=== PATIENT | male | born 1955 | race Caucasian/White ===

== ENCOUNTER 2017-12-22 16:47 | Inpatient (IN) | payer OTHER ==
[~2017-12-22] VITALS: Ht 193 cm; Wt 106.4 kg
[2017-12-22 17:05] LABS: BASOPHIL (%) 0.3 % (0-1); EOSINOPHIL COUNT 0.1 K/uL (0-0.3); HEMATOCRIT 43.3 % (38.0-50.0); HEMOGLOBIN 14.6 G/DL (12.5-16.6); IMMATURE GRANULOCYTE (%) 0.7 % (0.0-0.7); LYMPHOCYTE COUNT 1.7 K/uL (1.0-2.8); MCH 30.1 PG (29.0-34.0); MCHC 33.7 G/DL (30.0-36.0); MCV 89.3 FL (86-99); MONOCYTE (%) 6.7 % (3-12); MONOCYTE COUNT 0.5 K/uL (0-0.8); NEUTROPHIL (%) 66.3 % (45-76); NEUTROPHIL COUNT 4.6 K/uL (1.8-6.4); PLATELET COUNT 198 K/uL (156-360); RBC DIS.WIDTH-CV 12.7 % (11.8-14.6); RBC DIS.WIDTH-SD 41.7 % (39-53); RED BLOOD COUNT 4.85 M/uL (4.00-5.50); WHITE BLOOD COUNT 6.9 K/uL (4.1-10.2)
[2017-12-22 17:13] LABS: AMYLASE 34 IU/L (1-118); CHLORIDE 107 mEq/L (99-109); POTASSIUM 3.8 mEq/L (3.7-5.4); SODIUM 145 mEq/L (136-147)
[2017-12-22 17:15] LABS: GLUCOSE 130 mg/dL (70-99)
[2017-12-22 17:18] LABS: SERUM ETHYL ALCOHOL < 10 mg/dL
[2017-12-22 17:19] LABS: GFR ESTIMATE (CALCULATED) > 59 mL/min/ (58.99-99999)
[2017-12-22 17:20] LABS: UREA NITROGEN (BUN) 18 mg/dL (9-23)
[2017-12-22 18:03] LABS: LIPASE 20 U/L (1.0-51.0)
[2017-12-22 18:22] LABS: APPEARANCE CLEAR ((CLEAR)); BILIRUBIN NEGATIVE; BLOOD LARGE; COLOR YELLOW ((YELLOW)); GLUCOSE (STRIP) NEGATIVE; KETONES NEGATIVE; LEUKOCYTES NEGATIVE; NITRITE NEGATIVE; PROTEIN (STRIP) 30; SPECIFIC GRAVITY 1.041 (1.000-1.030); UROBILINOGEN 0.2 MG/DL (0.2-1.0)
[2017-12-22 18:31] LABS: COCAINE NEGATIVE (150 ng/mL); PHENCYCLIDINE NEGATIVE (25 ng/mL); THC CANNABINOIDS NEGATIVE (50 ng/mL)
[2017-12-22 18:32] LABS: AMPHETAMINE NEGATIVE (500 ng/mL); BARBITURATES NEGATIVE (200 ng/mL); BENZODIAZEPINES NEGATIVE (150 ng/mL); BUPRENORPHINE NEGATIVE (10 ng/mL); METHADONE NEGATIVE (200 ng/mL); METHAMPHETAMINE NEGATIVE (500 ng/mL); OPIATES (MORPHINE) NEGATIVE (100 ng/mL); OXYCODONE NEGATIVE (100 ng/mL); PROPOXYPHENE NEGATIVE (300 ng/mL); TRICYCLIC ANTIDEPRESSANTS NEGATIVE (300 ng/mL)
[2017-12-22 18:33] LABS: TROP-I INTERPRETATION NEGATIVE; TROPONIN-I < 0.01 ng/mL (0.0-0.30)
[2017-12-22 18:37] LABS: EPITHELIAL CELLS NONE SEEN /HPF; MUCUS 1+ /LPF; RED BLOOD CELLS 15-20 /HPF (0-5); WHITE BLOOD CELLS NONE SEEN /HPF (0-5)
[2017-12-22 18:38] LABS: BACTERIA RARE /HPF; UCUL ADDED? NO
[2017-12-22] MEDS ORDERED: ALEVE PM CAPLE1 EACH PO (19:56)
[2017-12-22 21:37] VITALS: BP 165/97
[2017-12-22 23:43] VITALS: BP 125/88
[2017-12-23 03:43] VITALS: BP 134/85
[2017-12-23 06:54] LABS: HEMATOCRIT 38.8 % (38.0-50.0); MCHC 33.5 G/DL (30.0-36.0); MCV 89.6 FL (86-99); PLATELET COUNT 172 K/uL (156-360); RBC DIS.WIDTH-CV 12.8 % (11.8-14.6); RBC DIS.WIDTH-SD 42.4 % (39-53); RED BLOOD COUNT 4.33 M/uL (4.00-5.50); WHITE BLOOD COUNT 5.4 K/uL (4.1-10.2)
[2017-12-23 08:09] LABS: ALBUMIN 3.6 G/DL (3.2-4.8); ALKALINE PHOSPHATASE 59 IU/L (3-129); ALT (GPT) 50 IU/L (3-49); AST (GOT) 41 IU/L (2-34); CHLORIDE 103 MEQ/L (99-109); CREATININE 0.6 MG/DL (0.6-1.3); GFR ESTIMATE (CALCULATED) > 59 mL/min/ (58.99-99999); GLUCOSE 134 mg/dL (70-99); SODIUM 141 MEQ/L (136-147); TOTAL BILIRUBIN 0.6 MG/DL (0.0-1.0); TOTAL PROTEIN 5.4 G/DL (6.4-8.3); UREA NITROGEN (BUN) 11 mg/dL (9-23)
[2017-12-23 08:26] VITALS: BP 155/96
[2017-12-23 11:45] VITALS: BP 156/97
[2017-12-23 20:38] VITALS: BP 180/109
[2017-12-23 23:35] VITALS: BP 180/82
[2017-12-24] VITALS (8 sets, daily range): BP systolic 130–180; BP diastolic 73–91
[2017-12-25 04:55] VITALS: BP 140/87
[2017-12-25 11:16] VITALS: BP 125/70
[2017-12-25 16:11] VITALS: BP 165/93
[2017-12-25 20:05] VITALS: BP 110/84
[2017-12-25 23:04] VITALS: BP 177/84
[2017-12-26 03:52] VITALS: BP 163/88
[2017-12-26 08:44] VITALS: BP 150/80
[2017-12-26] MEDS ORDERED: COLACE100 MG PO (09:33)
[2017-12-26] MEDS ORDERED: CYCLOBENZAPRINE10 MG PO (09:33)
[2017-12-26] MEDS ORDERED: OXYCODONE-APAP1 EACH PO (09:33)
[2017-12-26 12:13] VITALS: BP 142/79
[2017-12-26] MEDS ORDERED: PROAIR RESPICL90 MCG IH (12:47)
== END 2017-12-26 16:17 | disposition home health service (06) | DRG 511 ==
LOC: TRA 16:47 → EDOF 19:53 → 3EAST 19:53
PROVIDERS: Emergency Medicine; Surgery
PROC: 0PS Upper Bones, Reposition (ICD-10-PCS; principal; 2017-12-25)
PROC: 0PSJ04Z Reposition Left Radius with Internal Fixation Device, Open Approach (ICD-10-PCS; principal; 2017-12-25)
PROC: 0PSJ36Z Reposition Left Radius with Intramedullary Internal Fixation Device, Percutaneous Approach (ICD-10-PCS; principal; 2017-12-25)
DX: S52.372A Galeazzi's fracture of left radius, initial encounter for closed fracture (principal); S59.002A Unspecified physeal fracture of lower end of ulna, left arm, initial encounter for closed fracture; S42.022A Displaced fracture of shaft of left clavicle, initial encounter for closed fracture; S22.20XA Unspecified fracture of sternum, initial encounter for closed fracture; S27.898A Other injury of other specified intrathoracic organs, initial encounter; S27.321A Contusion of lung, unilateral, initial encounter; I71.2 Thoracic aortic aneurysm, without rupture; Y92.488 Other paved roadways as the place of occurrence of the external cause; V47.0XXA Car driver injured in collision with fixed or stationary object in nontraffic accident, initial encounter; Y93.89 Activity, other specified
CPT/HCPCS: 70450; 70486; 71045; 71260; 72125; 72129; 72132; 73000; 73080; 73090; 73110; 74177; 76000; 80048; 80053; 81003; 82150; 83690; 84484; 85025; 85027; 86850; 86900; 86901; 93005; 94640; 94799; 99281; 99285; C1713; G0480; J0131; J0690; J1100; J1170; J1644; J1885; J2250; J2405; J3010; J7120; S0020